=== PATIENT | male | born 1990 | race Caucasian/White ===

== ENCOUNTER 2018-03-14 23:59 | Emergency (ER) | payer OTHER ==
[~2018-03-14] VITALS: Ht 185.4 cm; Wt 93.0 kg
[2018-03-15] MEDS ORDERED: KEFLEX500 M1 PO (00:11)
[2018-03-15 00:57] VITALS: BP 127/68
== END 2018-03-15 00:57 | disposition home or self-care (01) ==
LOC: M.ERS 23:59
DX: S62.636A Displaced fracture of distal phalanx of right little finger, initial encounter for closed fracture (principal); S61.216A Laceration without foreign body of right little finger without damage to nail, initial encounter; W23.0XXA Caught, crushed, jammed, or pinched between moving objects, initial encounter; Y93.89 Activity, other specified; Y92.89 Other specified places as the place of occurrence of the external cause; Y99.8 Other external cause status